=== PATIENT | female | born 1975 | race African-American/Black ===

== ENCOUNTER → 2017-01-31 | Outpatient (CLI) | payer BC ==
[~2017-01-31] MED LIST: BIRTH CONTROL PILL PO; CERTAGEN PO; EDARBI80 MG PO; IBUPROFEN PO; LOESTRIN FE 1.51 TAB PO; MELATONIN3 MG PO; TYLENOL PM PO; ZYRTEC10 M2 PO; [UNRECOGNIZED DRUG - OTHER] PO; [UNRECOGNIZED DRUG - OTHER] PO
--- NOTE | ~2017-01-31 | CR63 ---
[facility] A Service of [facility] RADIOLOGY TEXT RESULTS PATIENT: CATALINA ESCOBAR LOCATION: [facility] : 75 UNIT #: [id number] AGE: [address]: Dolly Herrera MD SEX: F ORDER DR: [id number] [facility] [address] [place], [place] [address] [id number] O MR#: [id number] Acc #: [id number] NAME: CATALINA ESCOBAR : 1975 SEX: F STUDY DATE/TIME: 01/31/2017 12:04 UNIT: [facility] ROOM: STUDY DESCRIPTION: CR Chest 2 View Attending Physician: Dolly Herrera M.D. Referring Physician: Dolly Herrera M.D. Ordering Physician: Dolly Herrera M.D. Primary Care Physician: Dolly Herrera M.D. MEDICAL IMAGING REPORT This report is preliminary unless electronic signature is present EXAM Two-view chest INDICATIONS Shortness of air for the past 6 months. TECHNIQUE Frontal and lateral views of the chest. COMPARISON None. FINDINGS Heart size is within normal limits. Lungs are clear. No pleural fluid or pneumothorax. IMPRESSION No active process. Dictated by... Miguel Ángel Alonso M.D. THIS IS AN ELECTRONICALLY VERIFIED REPORT Miguel Ángel Alonso M.D. at 02/01/2017 12:11 PM EED/pcl TD: 02/01/2017 05:08 JOB #: [id number] MEDICAL IMAGING REPORT Page 1 of 1 COPY
== END | disposition home or self-care (01) ==
LOC: CRAD 11:22
DX: R06.02 Shortness of breath (principal)
CPT/HCPCS: 71020